=== PATIENT | male | born 1940 | race Caucasian/White ===

== ENCOUNTER 2018-08-22 10:40 | Emergency (ER) | payer SELFPAY ==
[~2018-08-22] VITALS: Ht 185.4 cm; Wt 80.0 kg
--- NOTE | 2018-08-22 10:50 | NUR ---
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 C/O SOB and anxiety. NAD. DC'd from [facility] 08/04 with similar complaint. Sent home on 2L NC. HH RN is scheduled to visit patient tomorrow. Placed on NIBP, pulse ox, and manager monitoring. Will continue to monitor.
[2018-08-22] MEDS ORDERED: LORazepam 0.5MG TABLET ONE (11:24)
[2018-08-22] MEDS ORDERED: LORazepam 1MG TABLET PO ONE (11:30)
--- NOTE | 2018-08-22 11:35 | NUR ---
Refusing labs. Ativan admin. at bedside.
[2018-08-22] MEDS ORDERED: LORazepam 0.5MG TABLET PO ONE (12:00)
[2018-08-22 12:16] VITALS: BP 138/84
--- NOTE | 2018-08-22 12:35 | NUR ---
Patient/Caregiver given discharge instructions and they have confirmed that they understand the instructions. Patient ambulatory with steady gait wuth walker. [facility] unable to provide transport. Patient provided with cab voucher.
== END 2018-08-22 12:36 | disposition home or self-care (01) ==
LOC: ED 12:23
DX: F41.1 Generalized anxiety disorder (principal); R06.00 Dyspnea, unspecified; F32.9 Major depressive disorder, single episode, unspecified; E78.5 Hyperlipidemia, unspecified
CPT/HCPCS: 71045; 93005; 99283